=== PATIENT | female | born 2000 | race Asian ===

== ENCOUNTER 2023-07-20 13:56 | Emergency (ER) | payer OTHER, MEDICAID ==
[2023-07-20 14:10] VITALS: BP_SYST 131; PULSE 78; RESP 18; TEMP 97.2; O2SAT 98
[2023-07-20] MEDS ORDERED: ACETAMINOPHEN 500 MG TABLET PO ONE (21:30)
[2023-07-20] MEDS ORDERED: IBUPROFEN 400 MG TABLET PO ONE (21:30)
[2023-07-20 21:44] VITALS: BP_SYST 135; PULSE 65; RESP 17; TEMP 97.9; O2SAT 98
== END 2023-07-20 21:44 | disposition home or self-care (01) ==
LOC: SED 13:56
DX: S50.811A Abrasion of right forearm, initial encounter (principal); Z79.899 Other long term (current) drug therapy; V89.2XXA Person injured in unspecified motor-vehicle accident, traffic, initial encounter; Y93.89 Activity, other specified; Y92.89 Other specified places as the place of occurrence of the external cause; Y99.8 Other external cause status
CPT/HCPCS: 99281